=== PATIENT | male | born 2000 | race African-American/Black ===

== ENCOUNTER 2021-09-30 14:50 | Emergency (ER) | payer MEDICAID, OTHER ==
[~2021-09-30] VITALS: Ht 182.9 cm; Wt 109.0 kg
[~2021-09-30 14:50] MED LIST: ABUTEROL
[2021-09-30] MEDS ORDERED: IBUP-2028 MT (16:40)
[2021-09-30] MEDS ORDERED: IBUPROFEN 400MG TABLET PO ONE (16:45)
[2021-09-30 16:53] VITALS: BP 140/68
== END 2021-09-30 17:18 | disposition home or self-care (01) ==
LOC: ER 14:50
DX: S63.92XA Sprain of unspecified part of left wrist and hand, initial encounter (principal); S56.592A Other injury of other extensor muscle, fascia and tendon at forearm level, left arm, initial encounter; Y08.89XA Assault by other specified means, initial encounter; Y93.89 Activity, other specified; Y92.9 Unspecified place or not applicable
CPT/HCPCS: 29130; 73120; 99283